=== PATIENT | male | born 1940 | race Caucasian/White ===

== ENCOUNTER 2016-08-09 06:11 | Inpatient (IN) | payer MEDICARE, BC ==
[2016-08-09] MEDS ORDERED: HEPARIN SODIUM,PORCINE 5,000 UNIT/ML 1 ML VIAL IV ONE (11:30)
[2016-08-09] MEDS: BUDESONIDE 0.5 MG/2 ML NEBU INHALATION SCH ×2 (11:43→18:58)
[2016-08-09] MEDS: IPRATROPIUM-ALBUTEROL 3 ML NEB INHALATION SCH ×3 (11:44→18:58)
[2016-08-09 12:18] LABS: Basophils % (A) 0 %; CH 30.3; CHCM 31.9; Eosinophils % (A) 1 %; HCT 41.3 % (39.0-53.0); HDW 2.54; HGB 12.7 gm/dL (13.0-17.5); Luc # (Auto) 0.03; Luc % (Auto) 0; Lymphocytes # (A) 0.4 k/uL (1.0-4.8); Lymphocytes % (A) 6 %; MCH 29.5 pg (25.0-35.0); MCHC 30.8 g/dL (31.0-37.0); MCV 95.8 fL (80.0-100.0); Monocytes # (A) 0.1 k/uL (0-1.0); Monocytes % (A) 1 %; Neutrophils # (A) 6.3 k/uL (1.3-7.7); Neutrophils % (A) 92 %; RBC 4.31 m/uL (4.30-5.90); RDW 14.9 % (11.5-15.5); WBC 6.8 k/uL (3.8-10.6); WBC (Perox) 7.18
[2016-08-09] MEDS: HEPARIN SODIUM,PORCINE/D5W PMX 25,000 UNIT in DEXTROSE/WATER 1 500ML.BAG IV SCH (12:48)
[2016-08-09] MEDS: SODIUM CHLORIDE 0.9% 1,000 ML IV SCH (12:49)
[2016-08-09] MEDS: METOPROLOL TARTRATE 25 MG TAB PO SCH ×2 (12:49→20:03)
[2016-08-09] MEDS: LORazepam 1 MG TAB PO SCH ×3 (12:49→21:59)
[2016-08-09 12:51] LABS: Prothrombin Time 10.1 sec (9.0-12.0)
[2016-08-09 12:56] LABS: Partial Thromboplastin Time 21.6 sec (22.0-30.0)
[2016-08-09 13:05] LABS: Creatine Kinase MB 6.2 ng/mL (0.0-2.4); Troponin I 0.157 ng/mL (0.000-0.034)
[2016-08-09] MEDS: methylPREDNISolone SOD SUCCI 40 MG/ML 1 ML VIAL IV SCH ×3 (13:13→23:07)
[2016-08-09] MEDS: VENLAFAXINE HCL ER 150 MG CAP PO SCH (13:13)
--- NOTE | 2016-08-09 14:49 | XR ---
EXAMINATION TYPE: XR chest 1V portable DATE OF EXAM: 08/09/2016 2:13 PM COMPARISON: 06/17/2006 HISTORY: Shortness of breath TECHNIQUE: Single frontal view of the chest is obtained. FINDINGS: There is no focal air space opacity, pleural effusion, or pneumothorax seen. The cardiac silhouette size is within normal limits. The osseous structures are intact. Heart is enlarged and a therosclerotic change aorta. Hyperinflation suggests COPD. There is a patchy left upper lobe area of density. IMPRESSION: 1. Patchy left upper lobe peripheral density may represent superimposed structures are early infiltra te, atelectasis correlate clinically. 2. COPD
--- NOTE | 2016-08-09 17:16 | P.CNPUL ---
History of Present Illness Consult date: 08/09/16 Requesting physician: Stew Swan Reason for consult: dyspnea Chief complaint: Shortness of breath, cough and congestion History of present illness: This is a very pleasant 75-year-old gentleman who has a past medical history of dementia, hyperlipidemia, osteoarthritis, previous recurrent pseudomonas pneumonias. He is maintained on Bactrim. He also has severe oxygen-dependent, steroid-dependent chronic obstructive pulmonary disease and follows with Dr. Vidales in our office for the same. He has a history of previous smoking. He was last seen about one month ago in the office with symptoms of cough and congestion and was treated with antibiotics and steroids and did improve for a couple of weeks. However 2 mornings ago he woke up not feeling well with difficulty breathing weakness and congestion. Yesterday he went to [facility] for continued symptoms. He was subsequently transferred here after being found to have borderline troponins and suspicion for acute coronary syndrome. He has no previous history of coronary artery disease, no myocardial infarction, no congestive heart failure. Troponin currently 0.157. He has been initiated on a heparin drip. He denies any chest pain, palpitations, lightheadedness or dizziness. He is quite dyspneic on minimal exertion and with extended conversation. He is maintaining O2 saturations in the 90s on 3 L/ m per nasal cannula. Currently afebrile. No leukocytosis. His chest x-ray shows a patchy left upper lobe density possible early infiltrate/atelectasis as well as signs of COPD. CT of the chest in December 2015 revealed fairly moderate to advanced emphysema changes with scattered areas of fibrosis seen bilaterally. Review of Systems 14 point review of system was conducted. All negative other than as mentioned in the HPI. Past Medical History Past Medical History: COPD, CVA/TIA, Dementia, Hyperlipidemia, Hypertension, Osteoarthritis (OA), Pneumonia Additional Past Medical History / Comment(s): HOME 02 4 LITERS N/C,CHRONIC LOW BACK PAIN. 2015 FALL/LT HIP FX(HAD SX HAS SCREW IN PLACE. History of recurrent Pseudomonas Pneumonia - ON MAINTANENCE ANTIBIOTIC AND STEROID SINCE 2011. "HAD SILENT TIA".DJD History of Any Multi-Drug Resistant Organisms: None Reported Past Surgical History: Back Surgery, Hernia Repair, Orthopedic Surgery, Prostate Surgery Additional Past Surgical History / Comment(s): ORIF LEFT HIP-HAS A SCREW IN PLACE, BACK SX X2(LUMBAR), NECK SX X3, MALU CATARACTS. PAIN PROC, LAST .LT ING HERNIA REPAIR, CYSTS REMOVED FROM RT HAND AND NEAR RECTUM,BRONCHOSCOPY , MALU CAROTID ENDARTERECTOMY Past Anesthesia/Blood Transfusion Reactions: Previous Problems w/ Anesthesia Additional Past Anesthesia/Blood Transfusion Reaction / Comment(s): POST-OP W/ ONE SX BECAME VIOLENT, IN 1999.CLAUSTERPHOBIA Past Psychological History: Anxiety, Depression Additional Psychological History / Comment(s): HAS SOME MEMORY LOSS/DEMENTIA. PT LIVES WITH IN SINGLE LEVEL HOME THAT HAS 3 STEPS . PT USES A CANE / WALKER AND HAS HOME 02, NEBULIZER. NO HOMECARES SERVICES RECIEVED. Smoking Status: Former smoker Past Alcohol Use History: Occasional Additional Past Alcohol Use History / Comment(s): QUIT SMOKING 2006, SMOKED LESS THAN 1PPD SINCE AGE 12 Past Drug Use History: None Reported - Past Family History Father Family Medical History: CVA/TIA Additional Family Medical History / Comment(s): AT AGE 54 FROM STROKE Mother Family Medical History: Cancer Medications and Allergies Home Medications Medication Instructions Recorded Confirmed Type Ascorbic Acid [Vitamin C] 1,000 mg PO BID 12/31/14 08/09/16 History Aspirin 162 mg PO HS 12/31/14 08/09/16 History Budesonide-Formot 160-4.5 Mcg 2 puff INHALATION RT-BID 12/31/14 08/09/16 History [Symbicort 160-4.5 Mcg Inhaler] Cholecalciferol [Vitamin D3] 2,000 unit PO DAILY 12/31/14 08/09/16 History Donepezil [Aricept] 10 mg PO HS 12/31/14 08/09/16 History Furosemide [Lasix] 20 mg PO DAILY 12/31/14 08/09/16 History Gabapentin [Neurontin] 600 mg PO TID 12/31/14 08/09/16 History Ipratropium-Albuterol Nebulize 3 ml INHALATION RT-Q6H PRN 12/31/14 08/09/16 History [Duoneb 0.5 mg-3 mg/3 ml Soln] LORazepam [Ativan] 1 mg PO TID 12/31/14 08/09/16 History Multivitamins, Thera [Multivitamin 1 tab PO DAILY 12/31/14 08/09/16 History (formulary)] Potassium Chloride [K-Tab ER] 10 meq PO DAILY 12/31/14 08/09/16 History Simvastatin [Zocor] 40 mg PO HS 12/31/14 08/09/16 History Sulfamethox-Tmp 800-160Mg [Bactrim 1 tab PO DAILY 12/31/14 08/09/16 History DS 800-160 mg] Triamterene-Hctz 37.5-25Mg 1 cap PO DAILY 12/31/14 08/09/16 History [Dyazide 37.5-25 Capsule] Venlafaxine HCl ER [Effexor XR] 150 mg PO DAILY 12/31/14 08/09/16 History amLODIPine [Norvasc] 10 mg PO HS 12/31/14 08/09/16 History Sennosides-Docusate Sodium 2 tab PO HS 09/29/15 08/09/16 History [Senokot-S] Metoprolol Tartrate [Lopressor] 25 mg PO BID 11/27/15 08/09/16 History Hydrocodone/Acetaminophen [[place] 1 tab PO Q4H PRN 12/21/15 08/09/16 History 10-325] Acetaminophen Tab [Tylenol Tab] 650 mg PO Q12H PRN 08/09/16 08/09/16 History Albuterol Sulfate [Proair Hfa] 2 puff PO RT-Q4H PRN 08/09/16 08/09/16 History predniSONE [predniSONE] See Taper PO DIRECTED 08/09/16 08/09/16 History Allergies Allergy/AdvReac Type Severity Reaction Status Date / Time codeine AdvReac Hallucinati Verified 08/09/16 10:59 ons zolpidem tartrate AdvReac Hallucinati Verified 08/09/16 10:59 [From Ambien] ons Physical Exam Vitals: Vital Signs Temp Pulse Pulse Resp BP Pulse Ox 08/09/16 16:05 98.3 F 80 18 166/73 92 L 08/09/16 15:49 65 14 08/09/16 15:36 65 14 08/09/16 12:40 104 H 20 136/98 94 L 08/09/16 11:51 95 08/09/16 11:46 95 08/09/16 10:36 16 93 L 08/09/16 09:30 97.5 F L 82 16 169/79 93 L Intake and Output 08/09/16 08/09/16 08/09/16 06:59 14:59 22:59 Intake Total 240 580 Output Total 300 Balance 240 280 Intake: IV 80 Heparin Sodium,Porcine/ 80 D5w Pmx 25,000 unit In Dextrose/Water 1 500ml. bag @ 10.9 UNITS/KG/HR 19 .94 mls/hr IV .Q24H NAVEEN Rx#:[id number] Oral 240 500 Output: Urine 300 Other: # Bowel Movements 1 Weight 91.5 kg Patient Weight 08/10/16 06:59 Weight 91.5 kg GENERAL EXAM: Alert, fairly comfortable in no apparent distress. HEAD: Normocephalic. EYES: Normal reaction of pupils, equal size. NOSE: Clear with pink turbinates. THROAT: No erythema or exudates. NECK: No masses, no JVD. CHEST: No chest wall deformity. LUNGS: Equal air entry with end expiratory wheeze. Diminished throughout. CVS: S1 and S2 normal with no audible murmurs, regular rhythm. ABDOMEN: No hepatosplenomegaly, normal bowel sounds, no guarding or rigidity. Extremities: There is trace peripheral edema. No clubbing, no cyanosis. Peripheral pulses are intact. Results - Laboratory Findings CBC and BMP: 08/09/16 12:01 PT/INR, D-dimer PT 10.1 sec (9.0-12.0) 08/09/16 12:01 INR 1.0 (<1.1) 08/09/16 12:01 Abnormal lab findings: Abnormal Labs 08/09/16 08/09/16 08/09/16 12:01 12:01 12:01 Hgb 12.7 L MCHC 30.8 L Lymphocytes # 0.4 L APTT 21.6 L CK-MB (CK-2) 6.2 H* Troponin I 0.157 H* - Diagnostic Findings Chest x-ray: image reviewed Assessment and Plan Plan: Impression: #1 Acute exacerbation of severe oxygen-dependent, steroid-dependent chronic obstructive pulmonary disease complicated by left upper lobe infiltrate/ atelectasis. #2 History of recurrent pseudomonas pneumonias, maintained on Bactrim in the outpatient setting. #3 Troponin leak with suspected coronary artery disease. Currently on a heparin drip. #4 History of dementia. #5 Hyperlipidemia. #6 Osteoarthritis with previous hip fracture secondary to a fall. #7 Remote history of chronic tobacco dependence. #8 Poor overall functional performance based on the above-mentioned multiple comorbidities. Plan: The patient was seen and evaluated by Dr. Vidales. His chest x-ray and labs were reviewed. We'll go ahead and continue with his pulmonary medications including bronchodilators every 4 hours, Pulmicort inhalations twice a day, IV Solu-Medrol and empiric antibiotics in the form of ceftriaxone and azithromycin. He remains on a heparin drip for now. Cardiology has been consulted. The patient is a DO NOT RESUSCITATE/DO NOT INTUBATE CODE STATUS. We will continue to follow and make further recommendations based on his clinical status. Time with Patient: Greater than 30
[2016-08-09] MEDS: GABAPENTIN 300 MG CAP PO SCH ×2 (17:38→21:56)
[2016-08-09 19:33] LABS: Creatine Kinase MB 42.6 ng/mL (0.0-2.4); Troponin I 4.23 ng/mL (0.000-0.034)
[2016-08-09 19:47] LABS: Glucose,Whole Blood 173 mg/dL (75-99)
[2016-08-09] MEDS: MORPHINE SULFATE 2 MG/ML SYRINGE IVP PRN (19:59)
[2016-08-09] MEDS: amLODIPine 10 MG TAB PO SCH (20:03)
[2016-08-09] MEDS: FAMOTIDINE 20 MG TAB PO SCH (20:04)
[2016-08-09] MEDS: HEPARIN SODIUM,PORCINE 5,000 UNIT/ML 1 ML VIAL IV PRN (20:12)
[2016-08-09 20:26] LABS: Anion Gap 17 mmol/L; Blood Urea Nitrogen 23 mg/dL (9-20); Calcium 9.7 mg/dL (8.4-10.2); Carbon Dioxide 21 mmol/L (22-30); Chloride 103 mmol/L (98-107); Glucose 172 mg/dL (74-99); Non-African American GFR(MDRD) >60 (>60 ml/min/1.73 sqM); Potassium 4.9 mmol/L (3.5-5.1); Sodium 141 mmol/L (137-145)
--- NOTE | 2016-08-09 20:44 | XR ---
EXAMINATION TYPE: XR chest 1V portable DATE OF EXAM: 08/09/2016 8:37 PM COMPARISON: Today HISTORY: Short of breath TECHNIQUE: Single frontal view of the chest is obtained. FINDINGS: There is no heart failure nor confluent pneumonic infiltrate. There is coarsening of inter stitial markings. There is no pleural effusion. There are chest leads. IMPRESSION: Pulmonary fibrotic changes. No acute lung disease. No change.
[2016-08-09] MEDS: FUROSEMIDE 20 MG TAB PO SCH (21:56)
[2016-08-09] MEDS: IPRATROPIUM-ALBUTEROL 3 ML NEB INHALATION PRN ×2 (21:58→23:59)
[2016-08-10] MEDS: MORPHINE SULFATE 2 MG/ML SYRINGE IVP PRN (00:12)
[2016-08-10 01:30] LABS: Creatine Kinase MB 75.5 ng/mL (0.0-2.4); Troponin I 8.65 ng/mL (0.000-0.034)
[2016-08-10] MEDS: IPRATROPIUM-ALBUTEROL 3 ML NEB INHALATION PRN ×3 (01:56→05:41)
[2016-08-10] MEDS ORDERED: FUROSEMIDE 10 MG/ML 4 ML VIAL IV STA ×2 (03:02→21:34)
[2016-08-10] MEDS ORDERED: FUROSEMIDE 10 MG/ML 4 ML VIAL ONE (03:05)
[2016-08-10 05:32] LABS: Glucose,Whole Blood 157 mg/dL (75-99)
[2016-08-10 06:12] LABS: Glucose,Whole Blood 143 mg/dL (75-99)
[2016-08-10] MEDS: HEPARIN SODIUM,PORCINE 5,000 UNIT/ML 1 ML VIAL IV PRN ×2 (06:19→12:49)
[2016-08-10] MEDS ORDERED: NALOXONE 0.4 MG/ML 1 ML VIAL IV PRN (06:28)
[2016-08-10 07:02] LABS: Appearance,Urine Clear (Clear); Bilirubin,Urine Negative (Negative); Glucose,Urine (UA) Negative (Negative); Ketones,Urine Negative (Negative); Leukocyte Esterase,Urine Negative (Negative); Mucus,Urine Rare /hpf; Nitrite,Urine Negative (Negative); PH, Urine 5.5 (5.0-8.0); Particle Count 1235; Protein,Urine Negative (Negative); RBC,Urine <1 /hpf (0-5); Specific Gravity,Urine 1.007 (1.001-1.035); UA Billing (MACRO vs. MICRO) MICRO; Urobilinogen,Urine <2.0 mg/dL (<2.0)
--- NOTE | 2016-08-10 07:21 | XR ---
EXAMINATION TYPE: XR chest 1V DATE OF EXAM: 08/10/2016 7:06 AM HISTORY: SOB. REFERENCE: Previous study dated 08/09/2016. FINDINGS: There has been a previous anterior and posterior cervical fusion in the lower cervical spin e. There is apparent elevation right hemidiaphragm. Heart size is upper limits of normal. There is some chronic linear scarring at the lung bases. This may represent mild fibrosis. There is no pneumonia or edema. IMPRESSION: 1. MILD CARDIOMEGALY. 2. MILD, CHRONIC INTERSTITIAL CHANGE. 3. POSTOPERATIVE CHANGE.
[2016-08-10] MEDS: IPRATROPIUM-ALBUTEROL 3 ML NEB INHALATION SCH ×4 (08:29→20:56)
[2016-08-10] MEDS: BUDESONIDE 0.5 MG/2 ML NEBU INHALATION SCH ×2 (08:29→20:56)
--- NOTE | 2016-08-10 08:34 | HP ---
DATE OF ADMISSION: REASON FOR ADMISSION: Difficulty in breathing. HISTORY OF PRESENT ILLNESS: This is a 75-year-old gentleman that comes into the hospital from [facility] with complaints of difficulty in breathing over the last few days. Patient has been diagnosed with advanced COPD . He is currently maintained on 3 liters of supplemental oxygen with chronic hypoxic respiratory failure. Patient states that he has been making increased amounts of yellowish sputum which is baseline color of sputum production over the last 4 days; however, has noted worsening difficulty in breathing, and worsening difficulty over the last few days. Patient went into the other facility and was noted to have significant wheezing apparently was in significant respiratory distress however, has improved with multiple breathing treatments. Patient was triaged to our facility at a higher level of care in regards to providing management for COPD exacerbation. Patient apparently was also noted to have a trace amount of troponin leak. Patient denies having any chest pain during this period of time. The patient's main complaints are difficulty in breathing. No fevers, chills, nausea, vomiting, or diarrhea is reported. At the time of my evaluation, patient states that he is feeling slightly better. However, he continues to have a cough that is productive in nature. EKG on repeat in comparison to the previous EKG at the prior facility shows pronounced ST depressions in anterolateral leads. The patient has history of coronary artery disease. Fourteen-point review of system was done and none pertinent other that was mentioned above. Past medical history includes: 1. Advanced chronic obstructive pulmonary disease. 2. Anemia. 3. Chronic hypoxic respiratory failure. 4. ( ). 5. Degenerative disc disease. 6. Hypertension. 7. Anxiety. 8. Dementia. 9. Vitamin D3 insufficiency. 10. History of hip fracture. SOCIAL HISTORY: Quit smoking about 8 years ago. No significant alcohol use or drug use. Home medications include: 1. Pro-Air. 2. Tylenol. 3. Lopressor. 4. DuoNeb. 5. [place]. 6. Neurontin. 7. Lasix. 8. Aricept. 9. Ativan. 10. Vitamin D3. 11. Symbicort. 12. Aspirin. 13. Vitamin C. 14. Multivitamin. 15. Dyazide. 16. Zocor. 17. Bactrim. 18. Senokot. 19. Norvasc. 20. Effexor. 21. Prednisone. Doses were appropriately reviewed and reconciled on admission. ALLERGIES: CODEINE AND ( ). Past surgical history includes orthopedic surgery, neck surgery and back surgery. Physical exam today: VITALS: Temperature is within normal limits. Heart rate is 65 to 104, respiratory rate 14, blood pressure is 136/98, saturating 94% on room air. GENERAL APPEARANCE: Alert, oriented x3 in mild respiratory distress. NECK: Supple. No JVD and previous surgical scar noted on the C-spine. LUNGS: Air movement is appreciated. Trace wheezing on prolonged expiration. Some rhonchi on the left side. HEART: S1, S2 are heard, regular rate and rhythm. A systolic murmur is appreciated. ABDOMEN: Soft, nontender, no organomegaly. NEURO: No focal motor or sensory deficits noted. VITALS: Chest x-ray is reviewed as a left upper lobe density, chronic changes as well. LABORATORY DATA: Today revealed white count 6.9, hemoglobin 12.7 and hematocrit 41.3, platelets of 235. Troponin of 0.157 with CK of 6.2. EKG as interpreted above. ASSESSMENT AND PLAN: 1. Non- Q wave myocardial infarction. 2. Acute exacerbation of chronic obstructive pulmonary disease, mild to moderate likely secondary to community-acquired pneumonia in a patient with advanced COPD with chronic hypoxic respiratory failure. 3. Hypertension. 4. Anxiety. 5. Vitamin D insufficiency. 6. Previous hip fracture. 7. Dyslipidemia. 8. Depression. PLAN: Will start the patient on IV heparin. Patient does not appear to have any chest pain all over her EKG changes are significant. This could be sequelae of the ( ) being significant respiratory distress and then patient was reported to be hypoxic at the other facility. We will have a director of vital statistics evaluate the patient as well. I will start the patient on Solu-Medrol 40 mg q.8h. Antibiotic coverage to be with Rocephin and Zithromax. We will have Dr. Vidales who is a java application engineer, evaluate the patient as well. DuoNeb q.i.d. and DuoNeb p.r.n. as well with Pulmicort 0.5 mg b.i.d. to be initiated. DVT prophylaxis aspiration already on heparin. The patient will be started on GI prophylaxis with high dose of steroids and patient being critical ill. Medications were reconciled.
[2016-08-10] MEDS: AZITHROMYCIN 500 MG in SODIUM CHLORIDE 0.9% 250 ML IVPB SCH (09:22)
[2016-08-10] MEDS: INSULIN LISPRO (humaLOG) 300 UNIT/3 ML VIAL SQ SCH ×4 (09:26→23:06)
[2016-08-10] MEDS: SODIUM CHLORIDE 0.9% 1,000 ML IV SCH (09:27)
[2016-08-10 09:33] LABS: Alkaline Phosphatase 49 U/L (38-126); Anion Gap 12 mmol/L; Blood Urea Nitrogen 40 mg/dL (9-20); Calcium 9.1 mg/dL (8.4-10.2); Carbon Dioxide 27 mmol/L (22-30); Chloride 103 mmol/L (98-107); Glucose 145 mg/dL (74-99); Magnesium 2.2 mg/dL (1.6-2.3); Non-African American GFR(MDRD) 52 (>60 ml/min/1.73 sqM); Phosphorous 6.6 mg/dL (2.5-4.5); Potassium 4.4 mmol/L (3.5-5.1); Sodium 142 mmol/L (137-145); Total Bilirubin 0.8 mg/dL (0.2-1.3); Total Protein 6.8 g/dL (6.3-8.2)
[2016-08-10 09:44] LABS: Basophils % (A) 0 %; CH 30.2; CHCM 31.3; Eosinophils % (A) 0 %; HCT 39.2 % (39.0-53.0); HGB 12.6 gm/dL (13.0-17.5); Hypochromasia Slight; Luc # (Auto) 0.14; Luc % (Auto) 1; Lymphocytes # (A) 0.7 k/uL (1.0-4.8); Lymphocytes % (A) 5 %; MCH 31.2 pg (25.0-35.0); MCHC 32.2 g/dL (31.0-37.0); MCV 96.8 fL (80.0-100.0); Mean Platelet Volume 7.5; Monocytes # (A) 0.6 k/uL (0-1.0); Monocytes % (A) 4 %; Neutrophils # (A) 12.1 k/uL (1.3-7.7); Neutrophils % (A) 90 %; RBC 4.05 m/uL (4.30-5.90); RDW 14.8 % (11.5-15.5); WBC 13.5 k/uL (3.8-10.6); WBC (Perox) 14.11
[2016-08-10 10:15] LABS: ALT 3288 U/L (21-72); AST 2043 U/L (17-59)
[2016-08-10] MEDS: FAMOTIDINE 20 MG TAB PO SCH (10:48)
[2016-08-10] MEDS: GABAPENTIN 300 MG CAP PO SCH ×3 (10:48→23:16)
[2016-08-10] MEDS: VENLAFAXINE HCL ER 150 MG CAP PO SCH (10:49)
[2016-08-10] MEDS: METOPROLOL TARTRATE 50 MG TAB PO SCH (10:49)
[2016-08-10] MEDS: FUROSEMIDE 20 MG TAB PO SCH (10:49)
[2016-08-10] MEDS: HEPARIN SODIUM,PORCINE/D5W PMX 25,000 UNIT in DEXTROSE/WATER 1 500ML.BAG IV SCH (10:54)
[2016-08-10] MEDS: LORazepam 1 MG TAB PO SCH (10:54)
[2016-08-10] MEDS: methylPREDNISolone SOD SUCCI 125 MG/2 ML VIAL IV SCH ×3 (11:11→23:45)
[2016-08-10] MEDS ORDERED: ATORVASTATIN 80 MG TAB PO STA (11:26)
[2016-08-10] MEDS ORDERED: ASPIRIN 81 MG CHEW PO STA (11:28)
[2016-08-10] MEDS ORDERED: HEPARIN SODIUM,PORCINE 5,000 UNIT/ML 1 ML VIAL IV STA (12:38)
--- NOTE | 2016-08-10 13:00 | P.PN ---
Subjective Principal diagnosis: Acute inferior wall myocardial infarction, acute exacerbation of chronic obstructive lung disease. This is a very pleasant 75-year-old gentleman who has a past medical history of dementia, hyperlipidemia, osteoarthritis, previous recurrent pneumonias. He is maintained on Bactrim. He also has severe oxygen-dependent, steroid-dependent chronic obstructive pulmonary disease and follows with me our office for the same. He has a history of previous smoking. He was last seen about one month ago in the office with symptoms of cough and congestion and was treated with antibiotics and steroids and did improve for a couple of weeks. However 2 mornings ago he woke up not feeling well with difficulty breathing weakness and congestion. Yesterday he went to [facility] for continued symptoms. He was subsequently transferred here after being found to have borderline troponins and suspicion for acute coronary syndrome. He has no previous history of coronary artery disease, no myocardial infarction, no congestive heart failure. Troponin currently 0.157. He has been initiated on a heparin drip. He denies any chest pain, palpitations, lightheadedness or dizziness. He is quite dyspneic on minimal exertion and with extended conversation. He is maintaining O2 saturations in the 90s on 3 L/m per nasal cannula. Currently afebrile. No leukocytosis. His chest x-ray shows a patchy left upper lobe density possible early infiltrate/atelectasis as well as signs of COPD. CT of the chest in December 2015 revealed fairly moderate to advanced emphysema changes with scattered areas of fibrosis seen bilaterally. Patient was reevaluated today on 08/10/2016, flight security specialist hours, the patient was having more shortness of breath, he was requiring more frequent treatments with DuoNeb, and he was placed on BiPAP. I was notified about this patient, and I have made arrangements for the patient be transferred to the ICU. Knowing in fact that the patient is DO NOT RESUSCITATE CODE STATUS, but I felt the patient will get closer attention in the intensive care unit setting. I saw him in the ICU shortly after he was transferred, patient remains on BiPAP, IPAP of 12, EPAP of 5, FiO2 is 70%. Patient seems to be more comfortable with BiPAP. However he was noted to be a bit tachycardic, hypertensive, and I have recommended that we increase his beta reza to 50 mg twice a day, I also recommended that he gets immediate evaluation by cardiology. His cardiac enzymes are on the rise, and clearly based on the presentation the patient must have sustained an acute inferior wall myocardial infarction. Chest x-ray showed no evidence of pulmonary edema, chronic changes noted, no evidence of pneumonia. Had a long discussion with the patient and his at bedside, patient would like to remain DO NOT RESUSCITATE, and we'll try to manage conservatively short of heroic invasive measures. Labs were reviewed PTT is therapeutic. CBC is normal. Electrolytes are normal however BUN is 40 creatinine is 1.33. Liver enzymes are on the rise possibly secondary to hypoperfusion. Or shock liver. Troponin is up to 8.6 CPK is up to 75.5. Objective - Vital Signs Vital signs: Vital Signs Temp 98.1 F 08/10/16 04:00 Pulse 71 08/10/16 12:03 Resp 21 08/10/16 12:00 BP 118/94 08/10/16 12:00 Pulse Ox 92 L 08/10/16 12:00 Intake & Output 08/09/16 08/10/16 08/10/16 18:59 06:59 18:59 Intake Total 1060 638.381 566.319 Output Total 515 726 8721 Balance 760 388.381 -783.681 Weight 91.5 kg Intake: IV 80 239.4 115.3 0.9 @10mls/hr 140 90 Heparin Sodium,Porcine/ 80 99.4 25.3 D5w Pmx 25,000 unit In Dextrose/Water 1 500ml. bag @ 10.9 UNITS/KG/HR 19 .94 mls/hr IV .Q24H NAVEEN Rx#:[id number] Intake, IV Titration 398.981 451.019 Amount Azithromycin 500 mg In 250 Sodium Chloride 0.9% 250 ml @ 125 mls/hr IVPB DAILY NAVEEN Rx#:[id number] Heparin Sodium,Porcine/ 398.981 101.019 D5w Pmx 25,000 unit In Dextrose/Water 1 500ml. bag @ 10.9 UNITS/KG/HR 19 .94 mls/hr IV .Q24H NAVEEN Rx#:[id number] cefTRIAXone 1,000 mg In 100 Sodium Chloride 0.9% 50 ml @ 100 mls/hr IVPB Q24HR NAVEEN Rx#:[id number] Oral 980 Output: Urine 151 884 4223 Other: Voiding Method Bedside Commode Indwelling Catheter Urinal # Bowel Movements 1 - Exam GENERAL EXAM: Alert, fairly comfortable in no apparent distress. However the patient is presently on BiPAP 02/21. HEAD: Normocephalic. EYES: Normal reaction of pupils, equal size. NOSE: Clear with pink turbinates. THROAT: No erythema or exudates. NECK: No masses, no JVD. CHEST: No chest wall deformity. LUNGS: Equal air entry with end expiratory wheeze. Diminished throughout. CVS: S1 and S2 normal with no audible murmurs, regular rhythm. ABDOMEN: No hepatosplenomegaly, normal bowel sounds, no guarding or rigidity. Extremities: There is trace peripheral edema. No clubbing, no cyanosis. Peripheral pulses are intact. - Labs CBC & Chem 7: 08/10/16 08:56 08/10/16 08:56 Labs: Abnormal Lab Results - Last 24 Hours (Table) 08/09/16 08/09/16 08/09/16 Range/Units 12:01 12:01 18:35 WBC (3.8-10.6) k/uL RBC (4.30-5.90) m/uL Hgb (13.0-17.5) gm/dL Neutrophils # (1.3-7.7) k/uL Lymphocytes # (1.0-4.8) k/uL APTT 21.6 L (22.0-30.0) sec Carbon Dioxide (22-30) mmol/L BUN (9-20) mg/dL Creatinine (0.66-1.25) mg/dL Glucose (74-99) mg/dL POC Glucose (mg/dL) (75-99) mg/dL Phosphorus (2.5-4.5) mg/dL AST (17-59) U/L ALT (21-72) U/L CK-MB (CK-2) 6.2 H* 42.6 H* (0.0-2.4) ng/mL Troponin I 0.157 H* 4.230 H* (0.000-0.034) ng/mL Urine Blood (Negative) Hyaline Casts (0-2) /lpf Urine Mucus (None) /hpf 08/09/16 08/09/16 08/09/16 Range/Units 18:35 19:44 19:53 WBC (3.8-10.6) k/uL RBC (4.30-5.90) m/uL Hgb (13.0-17.5) gm/dL Neutrophils # (1.3-7.7) k/uL Lymphocytes # (1.0-4.8) k/uL APTT 35.1 H (22.0-30.0) sec Carbon Dioxide 21 L (22-30) mmol/L BUN 23 H (9-20) mg/dL Creatinine (0.66-1.25) mg/dL Glucose 172 H (74-99) mg/dL POC Glucose (mg/dL) 173 H (75-99) mg/dL Phosphorus (2.5-4.5) mg/dL AST (17-59) U/L ALT (21-72) U/L CK-MB (CK-2) (0.0-2.4) ng/mL Troponin I (0.000-0.034) ng/mL Urine Blood (Negative) Hyaline Casts (0-2) /lpf Urine Mucus (None) /hpf 08/10/16 08/10/16 08/10/16 Range/Units 00:21 01:58 05:30 WBC (3.8-10.6) k/uL RBC (4.30-5.90) m/uL Hgb (13.0-17.5) gm/dL Neutrophils # (1.3-7.7) k/uL Lymphocytes # (1.0-4.8) k/uL APTT 39.1 H (22.0-30.0) sec Carbon Dioxide (22-30) mmol/L BUN (9-20) mg/dL Creatinine (0.66-1.25) mg/dL Glucose (74-99) mg/dL POC Glucose (mg/dL) 157 H (75-99) mg/dL Phosphorus (2.5-4.5) mg/dL AST (17-59) U/L ALT (21-72) U/L CK-MB (CK-2) 75.5 H* (0.0-2.4) ng/mL Troponin I 8.650 H* (0.000-0.034) ng/mL Urine Blood (Negative) Hyaline Casts (0-2) /lpf Urine Mucus (None) /hpf 08/10/16 08/10/16 08/10/16 Range/Units 06:01 06:15 08:56 WBC 13.5 H (3.8-10.6) k/uL RBC 4.05 L (4.30-5.90) m/uL Hgb 12.6 L (13.0-17.5) gm/dL Neutrophils # 12.1 H (1.3-7.7) k/uL Lymphocytes # 0.7 L (1.0-4.8) k/uL APTT (22.0-30.0) sec Carbon Dioxide (22-30) mmol/L BUN (9-20) mg/dL Creatinine (0.66-1.25) mg/dL Glucose (74-99) mg/dL POC Glucose (mg/dL) 143 H (75-99) mg/dL Phosphorus (2.5-4.5) mg/dL AST (17-59) U/L ALT (21-72) U/L CK-MB (CK-2) (0.0-2.4) ng/mL Troponin I (0.000-0.034) ng/mL Urine Blood Small H (Negative) Hyaline Casts 15 H (0-2) /lpf Urine Mucus Rare H (None) /hpf 08/10/16 08/10/16 Range/Units 08:56 11:38 WBC (3.8-10.6) k/uL RBC (4.30-5.90) m/uL Hgb (13.0-17.5) gm/dL Neutrophils # (1.3-7.7) k/uL Lymphocytes # (1.0-4.8) k/uL APTT 45.8 H (22.0-30.0) sec Carbon Dioxide (22-30) mmol/L BUN 40 H (9-20) mg/dL Creatinine 1.33 H (0.66-1.25) mg/dL Glucose 145 H (74-99) mg/dL POC Glucose (mg/dL) (75-99) mg/dL Phosphorus 6.6 H (2.5-4.5) mg/dL AST 2043 H (17-59) U/L ALT 3288 H (21-72) U/L CK-MB (CK-2) (0.0-2.4) ng/mL Troponin I (0.000-0.034) ng/mL Urine Blood (Negative) Hyaline Casts (0-2) /lpf Urine Mucus (None) /hpf Assessment and Plan Plan: Impression: 1 Acute inferior wall myocardial infarction with abnormal EKG on presentation and positive cardiac panel. Patient is presently on treatment as per protocol. 2 acute hypoxic respiratory failure secondary to Acute exacerbation of severe oxygen-dependent, steroid-dependent chronic obstructive pulmonary disease no evidence of pneumonia on chest x-ray. The findings are chronic findings on the chest x-ray. # 3 History of recurrent pneumonias, maintained on Bactrim in the outpatient setting. #4 History of dementia. #5 Hyperlipidemia. #6 Osteoarthritis with previous hip fracture secondary to a fall. #7 Remote history of chronic tobacco dependence. #8 Poor overall functional performance based on the above-mentioned multiple comorbidities. #9 abnormal liver enzymes, will likely need to be further investigated. Possibly this is a presentation of shock liver. Recommendation: Continue present supportive care measures, discussed his condition with him and with his family at bedside, all wish DO NOT RESUSCITATE CODE STATUS, we'll ask cardiology to evaluate, continue present treatment plan otherwise. Prognosis is definitely guarded. Critical care time is 33 minutes. Time with Patient: Greater than 30
[2016-08-10 13:12] LABS: Glucose,Whole Blood 171 mg/dL (75-99)
[2016-08-10] MEDS ORDERED: LORazepam 2 MG/ML SYRINGE ONE (14:04)
--- NOTE | 2016-08-10 14:52 | CONS ---
DATE OF CONSULTATION: Mr. Monae was transferred from [facility] with bronchitis, COPD exacerbation and shortness of breath to assess for coronary artery disease. The patient Vera about a month back. His main complaint has been breathing trouble and he has cough with expectoration, yellow-green sputum. He completely denies any chest discomfort. REVIEW OF SYSTEMS: He denies any fever, chills, rigors. He does have cough, expectoration. No nausea, vomiting or diarrhea. No hematuria or dysuria. No strokes or seizures. His ECG has showed ST depression in the anterolateral precordial leads and troponins were sent and are definitely abnormal. Past medical history of advanced COPD, chronic respiratory failure, hypertension and anemia. SOCIAL HISTORY: He quit smoking about 8 years back. No alcohol use. Medications at home include Lopressor, Lasix, aspirin, Dyazide, Zocor and prednisone. Allergies to CODEINE. On examination, he is lying almost flat in bed about a 20 degrees head up with mild shortness of breath at rest. His heart rate is in the 70s. Blood pressure is 118/94 mmHg, respiratory rate is about 20 to 25 respirations per minute. No JVD or thyromegaly with heart sounds S1, S2 are soft. Breath sounds bilateral rhonchi with some crackles at the bases. Abdomen is soft, nontender. Extremities are warm. No edema. A 12-lead ECG shows ST depressions anterolaterally. Labs are reviewed. His white count is elevated at 13.5 with a neutrophil shift. Electrolytes are normal. BUN is 40, creatinine 1.33. Liver functions are abnormal, AST greater than 2000 ALT greater than 3000. IMPRESSION: 1. Non-Q-wave myocardial infarction. 2. Chronic obstructive pulmonary disease exacerbation, tracheobronchitis. 3. Abnormal liver functions, unclear etiology at this time. SUGGEST: Beta blockers, aspirin, statins. We able to watch the LFTs on statins and continue IV heparin today. A 2-D echo and Doppler study, medical treatment for coronary artery disease and non-Q-wave myocardial infarction at this time until the lung functions improve. I will also start him on Lasix 40 mg once daily. This was discussed with the family and they are agreeable with the plan.
--- NOTE | 2016-08-10 16:51 | P.PN ---
Subjective HISTORY OF PRESENT ILLNESS: This is a 75-year-old gentleman that comes into the hospital from [facility] with complaints of difficulty in breathing over the last few days. Patient has been diagnosed with advanced COPD . He is currently maintained on 3 liters of supplemental oxygen with chronic hypoxic respiratory failure. Patient states that he has been making increased amounts of yellowish sputum which is baseline color of sputum production over the last 4 days; however, has noted worsening difficulty in breathing, and worsening difficulty over the last few days. Patient went into the other facility and was noted to have significant wheezing apparently was in significant respiratory distress however, has improved with multiple breathing treatments. Patient was triaged to our facility at a higher level of care in regards to providing management for COPD exacerbation. Patient apparently was also noted to have a trace amount of troponin leak. Patient denies having any chest pain during this period of time. The patient's main complaints are difficulty in breathing. No fevers, chills, nausea, vomiting, or diarrhea is reported. At the time of my evaluation, patient states that he is feeling slightly better. However, he continues to have a cough that is productive in nature. EKG on repeat in comparison to the previous EKG at the prior facility shows pronounced ST depressions in anterolateral leads. The patient has history of coronary artery disease. 08/10/16 in the ICu, overnight pt was hypxic and triaged to the ICU for continous bipap during my eval, pt was in distress not tolerating bipap Fourteen-point review of system was done and none pertinent other that was mentioned above. Physical exam GENERAL APPEARANCE: Alert, oriented x3 in mild respiratory distress. NECK: Supple. No JVD and previous surgical scar noted on the C-spine. LUNGS: worse than on admission exp. wheezing noted air movement is diminished HEART: S1, S2 are heard, regular rate and rhythm. A systolic murmur is appreciated. ABDOMEN: Soft, nontender, no organomegaly. NEURO: No focal motor or sensory deficits noted. erratic Objective - Vital Signs Vital signs: Vital Signs Temp 97.8 F 08/10/16 13:00 Pulse 69 08/10/16 16:00 Resp 20 08/10/16 16:00 BP 108/73 08/10/16 16:00 Pulse Ox 95 08/10/16 16:00 Intake & Output 08/09/16 08/10/16 08/10/16 18:59 06:59 18:59 Intake Total 1060 638.381 665.954 Output Total 821 526 7421 Balance 760 388.381 -859.046 Weight 91.5 kg Intake: IV 80 239.4 155.3 0.9 @10mls/hr 140 130 Heparin Sodium,Porcine/ 80 99.4 25.3 D5w Pmx 25,000 unit In Dextrose/Water 1 500ml. bag @ 10.9 UNITS/KG/HR 19 .94 mls/hr IV .Q24H [facility] Rx#:[id number] Intake, IV Titration 398.981 510.654 Amount Azithromycin 500 mg In 250 Sodium Chloride 0.9% 250 ml @ 125 mls/hr IVPB DAILY [facility] Rx#:[id number] Heparin Sodium,Porcine/ 398.981 160.654 D5w Pmx 25,000 unit In Dextrose/Water 1 500ml. bag @ 10.9 UNITS/KG/HR 19 .94 mls/hr IV .Q24H [facility] Rx#:[id number] cefTRIAXone 1,000 mg In 100 Sodium Chloride 0.9% 50 ml @ 100 mls/hr IVPB Q24HR [facility]EN Rx#:[id number] Oral 980 Output: Urine 653 960 2311 Other: Voiding Method Bedside Commode Indwelling Catheter Urinal # Bowel Movements 1 - Labs CBC & Chem 7: 08/10/16 08:56 08/10/16 08:56 Labs: Abnormal Lab Results - Last 24 Hours (Table) 08/09/16 08/09/16 08/09/16 Range/Units 18:35 18:35 19:44 WBC (3.8-10.6) k/uL RBC (4.30-5.90) m/uL Hgb (13.0-17.5) gm/dL Neutrophils # (1.3-7.7) k/uL Lymphocytes # (1.0-4.8) k/uL APTT 35.1 H (22.0-30.0) sec Carbon Dioxide (22-30) mmol/L BUN (9-20) mg/dL Creatinine (0.66-1.25) mg/dL Glucose (74-99) mg/dL POC Glucose (mg/dL) 173 H (75-99) mg/dL Phosphorus (2.5-4.5) mg/dL AST (17-59) U/L ALT (21-72) U/L CK-MB (CK-2) 42.6 H* (0.0-2.4) ng/mL Troponin I 4.230 H* (0.000-0.034) ng/mL Urine Blood (Negative) Hyaline Casts (0-2) /lpf Urine Mucus (None) /hpf 08/09/16 08/10/16 08/10/16 Range/Units 19:53 00:21 01:58 WBC (3.8-10.6) k/uL RBC (4.30-5.90) m/uL Hgb (13.0-17.5) gm/dL Neutrophils # (1.3-7.7) k/uL Lymphocytes # (1.0-4.8) k/uL APTT 39.1 H (22.0-30.0) sec Carbon Dioxide 21 L (22-30) mmol/L BUN 23 H (9-20) mg/dL Creatinine (0.66-1.25) mg/dL Glucose 172 H (74-99) mg/dL POC Glucose (mg/dL) (75-99) mg/dL Phosphorus (2.5-4.5) mg/dL AST (17-59) U/L ALT (21-72) U/L CK-MB (CK-2) 75.5 H* (0.0-2.4) ng/mL Troponin I 8.650 H* (0.000-0.034) ng/mL Urine Blood (Negative) Hyaline Casts (0-2) /lpf Urine Mucus (None) /hpf 08/10/16 08/10/16 08/10/16 Range/Units 05:30 06:01 06:15 WBC (3.8-10.6) k/uL RBC (4.30-5.90) m/uL Hgb (13.0-17.5) gm/dL Neutrophils # (1.3-7.7) k/uL Lymphocytes # (1.0-4.8) k/uL APTT (22.0-30.0) sec Carbon Dioxide (22-30) mmol/L BUN (9-20) mg/dL Creatinine (0.66-1.25) mg/dL Glucose (74-99) mg/dL POC Glucose (mg/dL) 157 H 143 H (75-99) mg/dL Phosphorus (2.5-4.5) mg/dL AST (17-59) U/L ALT (21-72) U/L CK-MB (CK-2) (0.0-2.4) ng/mL Troponin I (0.000-0.034) ng/mL Urine Blood Small H (Negative) Hyaline Casts 15 H (0-2) /lpf Urine Mucus Rare H (None) /hpf 08/10/16 08/10/16 08/10/16 Range/Units 08:56 08:56 11:38 WBC 13.5 H (3.8-10.6) k/uL RBC 4.05 L (4.30-5.90) m/uL Hgb 12.6 L (13.0-17.5) gm/dL Neutrophils # 12.1 H (1.3-7.7) k/uL Lymphocytes # 0.7 L (1.0-4.8) k/uL APTT 45.8 H (22.0-30.0) sec Carbon Dioxide (22-30) mmol/L BUN 40 H (9-20) mg/dL Creatinine 1.33 H (0.66-1.25) mg/dL Glucose 145 H (74-99) mg/dL POC Glucose (mg/dL) (75-99) mg/dL Phosphorus 6.6 H (2.5-4.5) mg/dL AST 2043 H (17-59) U/L ALT 3288 H (21-72) U/L CK-MB (CK-2) (0.0-2.4) ng/mL Troponin I (0.000-0.034) ng/mL Urine Blood (Negative) Hyaline Casts (0-2) /lpf Urine Mucus (None) /hpf 08/10/16 Range/Units 13:07 WBC (3.8-10.6) k/uL RBC (4.30-5.90) m/uL Hgb (13.0-17.5) gm/dL Neutrophils # (1.3-7.7) k/uL Lymphocytes # (1.0-4.8) k/uL APTT (22.0-30.0) sec Carbon Dioxide (22-30) mmol/L BUN (9-20) mg/dL Creatinine (0.66-1.25) mg/dL Glucose (74-99) mg/dL POC Glucose (mg/dL) 171 H (75-99) mg/dL Phosphorus (2.5-4.5) mg/dL AST (17-59) U/L ALT (21-72) U/L CK-MB (CK-2) (0.0-2.4) ng/mL Troponin I (0.000-0.034) ng/mL Urine Blood (Negative) Hyaline Casts (0-2) /lpf Urine Mucus (None) /hpf Assessment and Plan Plan: ASSESSMENT AND PLAN: 1. Non- Q wave myocardial infarction. 2. Acute exacerbation of chronic obstructive pulmonary disease, mild to moderate likely secondary to community-acquired pneumonia in a patient with advanced COPD with acute on chronic hypoxic hypercapnic respiratory failure. 3. Hypertension. 4. Anxiety. 5. Vitamin D insufficiency. 6. Previous hip fracture. 7. Dyslipidemia. 8. Depression. PLAN: solumedrol iv, breathing tx to continue CAP abx bipap asa, statin and to continue heparin per NSTEMI protocol code status DNR
[2016-08-10 17:21] LABS: Glucose,Whole Blood 129 mg/dL (75-99)
[2016-08-10] MEDS: LORazepam 2 MG/ML SYRINGE IV PRN (18:28)
[2016-08-10 21:00] LABS: Glucose,Whole Blood 129 mg/dL (75-99)
[2016-08-10] MEDS: DEXMEDETOMIDINE 400 MCG in SODIUM CHLORIDE 0.9% 100 ML IV SCH (21:16)
[2016-08-10] MEDS ORDERED: HALOPERIDOL LACTATE 5 MG/ML 1 ML VIAL IVP ONE (21:30)
[2016-08-10] MEDS: amLODIPine 10 MG TAB PO SCH (23:16)
[2016-08-11] MEDS: METOPROLOL TARTRATE 50 MG TAB PO SCH ×3 (00:04→21:48)
[2016-08-11] MEDS: methylPREDNISolone SOD SUCCI 40 MG/ML 1 ML VIAL IV SCH (00:05)
[2016-08-11] MEDS: DEXMEDETOMIDINE 400 MCG in SODIUM CHLORIDE 0.9% 100 ML IV SCH ×2 (03:32→11:01)
[2016-08-11 04:55] LABS: Basophils % (A) 0 %; CH 30.6; CHCM 32.3; Eosinophils # (A) 0.1 k/uL (0-0.7); Eosinophils % (A) 1 %; HCT 36.4 % (39.0-53.0); HDW 2.44; HGB 11.6 gm/dL (13.0-17.5); Luc # (Auto) 0.06; Luc % (Auto) 1; Lymphocytes # (A) 0.6 k/uL (1.0-4.8); Lymphocytes % (A) 5 %; MCH 30.3 pg (25.0-35.0); MCHC 31.8 g/dL (31.0-37.0); MCV 95.2 fL (80.0-100.0); Mean Platelet Volume 7.8; Monocytes # (A) 0.3 k/uL (0-1.0); Monocytes % (A) 3 %; Neutrophils # (A) 10.1 k/uL (1.3-7.7); Neutrophils % (A) 90 %; RBC 3.82 m/uL (4.30-5.90); RDW 14.9 % (11.5-15.5); WBC 11.2 k/uL (3.8-10.6); WBC (Perox) 12.22
[2016-08-11 05:08] LABS: Calcium 7.9 mg/dL (8.4-10.2); Phosphorous 6.1 mg/dL (2.5-4.5); Potassium 3.8 mmol/L (3.5-5.1)
[2016-08-11 05:17] LABS: Magnesium 2.5 mg/dL (1.6-2.3)
[2016-08-11] MEDS: IPRATROPIUM-ALBUTEROL 3 ML NEB INHALATION SCH ×4 (05:46→19:35)
[2016-08-11] MEDS ORDERED: Potassium Replacement Protocol 1 EACH MISC MISCELLANE PRN (06:27)
[2016-08-11] MEDS: HEPARIN SODIUM,PORCINE/D5W PMX 25,000 UNIT in DEXTROSE/WATER 1 500ML.BAG IV SCH (06:28)
[2016-08-11] MEDS: methylPREDNISolone SOD SUCCI 125 MG/2 ML VIAL IV SCH ×4 (06:33→23:47)
[2016-08-11] MEDS ORDERED: POTASSIUM CHLORIDE ER 20 MEQ TAB.ER PO SCH (07:00)
--- NOTE | 2016-08-11 07:07 | XR ---
EXAMINATION TYPE: XR chest 1V DATE OF EXAM: 08/11/2016 6:42 AM HISTORY: SOB. REFERENCE: Previous study dated 08/10/2016. FINDINGS: There has been an anterior and posterior fusion of the lower cervical spine by. There is chronic appearing elevation of the right hemidiaphragm. Heart size upper limits of normal. T here is worsening alveolar airspace disease on the left and to a lesser extent on the right. No defin ite pleural fluid is seen. IMPRESSION: 1. WORSENING BILATERAL AIRSPACE DISEASE. 2. BORDERLINE CARDIOMEGALY.
[2016-08-11] MEDS: BUDESONIDE 0.5 MG/2 ML NEBU INHALATION SCH ×2 (07:39→19:35)
[2016-08-11] MEDS: IPRATROPIUM-ALBUTEROL 3 ML NEB INHALATION PRN (07:39)
[2016-08-11] MEDS: SODIUM CHLORIDE 0.9% 1,000 ML IV SCH (07:43)
[2016-08-11 07:54] LABS: Glucose,Whole Blood 130 mg/dL (75-99)
[2016-08-11] MEDS: INSULIN LISPRO (humaLOG) 300 UNIT/3 ML VIAL SQ SCH ×4 (08:27→21:00)
[2016-08-11] MEDS: POTASSIUM CHLORIDE 10 MEQ, LIDOCAINE 2% INJ 10 MG in SODIUM CHLORIDE 0.9% 100 ML IV SCH ×2 (09:21→11:03)
[2016-08-11] MEDS: AZITHROMYCIN 500 MG in SODIUM CHLORIDE 0.9% 250 ML IVPB SCH (09:22)
[2016-08-11] MEDS: FAMOTIDINE 20 MG TAB PO SCH (09:24)
[2016-08-11] MEDS: GABAPENTIN 300 MG CAP PO SCH ×3 (09:24→21:49)
[2016-08-11] MEDS: VENLAFAXINE HCL ER 150 MG CAP PO SCH (09:25)
--- NOTE | 2016-08-11 10:14 | ECHOF ---
Referral Reason:LV function MEASUREMENTS -------- HEIGHT: 177.8 cm WEIGHT: 91.2 kg BP: 160/66 RVIDd: 3.2 cm (< 3.3) IVSd: 1.4 cm (0.6 - 1.1) LVIDd: 5.0 cm (3.9 - 5.3) LVPWd: 1.4 cm (0.6 - 1.1) IVSs: 2.1 cm LVIDs: 4.5 cm LVPWs: 1.9 cm LAESV Index (A-L): 20.15 ml/m Ao Diam: 3.3 cm (2.0 - 3.7) AV Cusp: 1.5 cm (1.5 - 2.6) LA Diam: 2.9 cm (2.7 - 3.8) MV EXCURSION: 18.655 mm (> 18.000) MV EF SLOPE: 132 mm/s (70 - 150) EPSS: 2.3 cm MV E Tung: 1.13 m/s MV DecT: 156 ms MV A Tung: 0.65 m/s MV E/A Ratio: 1.73 RAP: 15.00 mmHg RVSP: 25.84 mmHg FINDINGS -------- Resting tachycardia (HR>100bpm). This was a technically adequate study. There is moderate concentric left ventricular hypertrophy. There is severe global hypokinesis of LV . Overall left ventricular systolic function is severely impaired with, an EF between 20 - 25 %. Mitral Doppler inflow pattern suggests diastolic filling abnormality 21.00. The right ventricle is normal in size and function. Normal LA size by volume 22+/-6 ml/m2. The right atrium is normal in size. There is mild aortic valve sclerosis. There is no evidence of aortic regurgitation. There is no evidence of aortic stenosis. The mitral valve leaflets are mildly thickened. Mild mitral annular calcification present. Mild mitral regurgitation is present. Trace tricuspid regurgitation present. There is no evidence of pulmonary hypertension. The right ventricular systolic pressure, as measured by Doppler, is 25.84mmHg. The pulmonic valve was not well visualized. The aortic root size is normal. The inferior vena cava is dilated with no significant inspiratory collapse which is consistent estimated right atrial pressure of >20 mmHg. The pericardium is normal. There is no pericardial effusion. CONCLUSIONS -------- 1. Resting tachycardia (HR>100bpm). 2. Mild mitral regurgitation is present. 3. Trace tricuspid regurgitation present. 4. There is no evidence of pulmonary hypertension. 5. The right ventricular systolic pressure, as measured by Doppler, is 25.84mmHg. 6. The pulmonic valve was not well visualized. 7. The aortic root size is normal. 8. The inferior vena cava is dilated with no significant inspiratory collapse which is consistent estimated right atrial pressure of >20 mmHg. 9. There is no pericardial effusion. 10. There is moderate concentric left ventricular hypertrophy. 11. There is severe global hypokinesis of LV . 12. Overall left ventricular systolic function is severely impaired with, an EF between 20 - 25 %. 13. Mitral Doppler inflow pattern suggest diastolic filling abnormality 21.00. 14. Normal LA size by volume 22+/-6 ml/m2. 15. There is mild aortic valve sclerosis. 16. The mitral valve leaflets are mildly thickened. 17. Mild mitral annular calcification present. SUCTION WORKER: Elio Tracy RDCS
[2016-08-11] MEDS: ASPIRIN 81 MG CHEW PO SCH (10:31)
[2016-08-11] MEDS: LORazepam 2 MG/ML SYRINGE IV PRN (10:31)
[2016-08-11] MEDS: FUROSEMIDE 10 MG/ML 4 ML VIAL IV SCH (10:32)
--- NOTE | 2016-08-11 11:56 | P.PN ---
Subjective Principal diagnosis: Acute respiratory failure secondary to acute inferior wall myocardial infarction and COPD exacerbation. This is a very pleasant 75-year-old gentleman who has a past medical history of dementia, hyperlipidemia, osteoarthritis, previous recurrent pneumonias. He is maintained on Bactrim. He also has severe oxygen-dependent, steroid-dependent chronic obstructive pulmonary disease and follows with me our office for the same. He has a history of previous smoking. He was last seen about one month ago in the office with symptoms of cough and congestion and was treated with antibiotics and steroids and did improve for a couple of weeks. However 2 mornings ago he woke up not feeling well with difficulty breathing weakness and congestion. Yesterday he went to [facility] for continued symptoms. He was subsequently transferred here after being found to have borderline troponins and suspicion for acute coronary syndrome. He has no previous history of coronary artery disease, no myocardial infarction, no congestive heart failure. Troponin currently 0.157. He has been initiated on a heparin drip. He denies any chest pain, palpitations, lightheadedness or dizziness. He is quite dyspneic on minimal exertion and with extended conversation. He is maintaining O2 saturations in the 90s on 3 L/m per nasal cannula. Currently afebrile. No leukocytosis. His chest x-ray shows a patchy left upper lobe density possible early infiltrate/atelectasis as well as signs of COPD. CT of the chest in December 2015 revealed fairly moderate to advanced emphysema changes with scattered areas of fibrosis seen bilaterally. 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 I was notified about this patient, and I have made arrangements for the patient be transferred to the ICU. Knowing in fact that the patient is DO NOT RESUSCITATE CODE STATUS, but I felt the patient will get closer attention in the intensive care unit setting. I saw him in the ICU shortly after he was transferred, patient remains on BiPAP, IPAP of 12, EPAP of 5, FiO2 is 70%. Patient seems to be more comfortable with BiPAP. However he was noted to be a bit tachycardic, hypertensive, and I have recommended that we increase his beta reza to 50 mg twice a day, I also recommended that he gets immediate evaluation by cardiology. His cardiac enzymes are on the rise, and clearly based on the presentation the patient must have sustained an acute inferior wall myocardial infarction. Chest x-ray showed no evidence of pulmonary edema, chronic changes noted, no evidence of pneumonia. Had a long discussion with the patient and his at bedside, patient would like to remain DO NOT RESUSCITATE, and we'll try to manage conservatively short of heroic invasive measures. Labs were reviewed PTT is therapeutic. CBC is normal. Electrolytes are normal however BUN is 40 creatinine is 1.33. Liver enzymes are on the rise possibly secondary to hypoperfusion. Or shock liver. Troponin is up to 8.6 CPK is up to 75.5. Patient was reevaluated today on 08/11/2016. I actually came back last night and evaluated the patient, and he was extremely restless agitated and could not hold still in bed. Patient was confused, and clearly noted to have what seems to be a picture of ICU psychosis. Hence after Haldol failed to control the patient, and after Ativan also failed to control the patient appropriately, I recommended starting the patient on Precedex. That seemed to work much better than Haldol and Ativan. Patient apparently slept through the night until early this morning. He remains on Precedex, and this is as per protocol. Patient was on BiPAP earlier, I plan to switch him to a non-rebreather mask or possibly to a high flow nasal cannula. Discussed his condition with his family at bedside, apparently he had a similar clinical presentation back when he had his spinal surgery years ago. Patient remains a bit confused, and a bit restless when aroused. Labs were reviewed, WBC count is 11.2 hemoglobin is 11.6. PTT is therapeutic at 49.4. BUN is 59 and creatinine is 1.53, hence I will cut down on diuretics on this patient. And cautiously hydrate him. Chest x-ray showed borderline cardiomegaly, and worsening alveolar airspace disease in the left and right lower lobe. Differential diagnosis of course includes pneumonia and atelectasis. Not to mention the patient had previously chronic changes in the lower lobes. And he remains empirically on antibiotics anyway. Although my clinical suspicion for pneumonia is rather low. Objective - Vital Signs Vital signs: Vital Signs Temp 98.4 F 08/11/16 08:00 Pulse 75 08/11/16 11:43 Resp 19 08/11/16 11:00 BP 101/60 08/11/16 11:00 Pulse Ox 98 08/11/16 11:00 Intake & Output 08/10/16 08/11/16 08/11/16 18:59 06:59 18:59 Intake Total 745.954 839.161 151.008 Output Total 1790 572 270 Balance -1044.046 267.161 -118.992 Weight 91.1 kg Intake: IV 235.3 240 80 0.9 @10mls/hr 210 240 80 Heparin Sodium,Porcine/ 25.3 D5w Pmx 25,000 unit In Dextrose/Water 1 500ml. bag @ 10.9 UNITS/KG/HR 19 .94 mls/hr IV .Q24H [facility] Rx#:[id number] Intake, IV Titration 510.654 479.161 71.008 Amount Azithromycin 500 mg In 250 Sodium Chloride 0.9% 250 ml @ 125 mls/hr IVPB DAILY [facility] Rx#:[id number] Dexmedetomidine 400 mcg 38.796 71.008 In Sodium Chloride 0.9% 100 ml @ Titrate IV .Q0M [facility] Rx#:[id number] Heparin Sodium,Porcine/ 160.654 440.365 D5w Pmx 25,000 unit In Dextrose/Water 1 500ml. bag @ 10.9 UNITS/KG/HR 19 .94 mls/hr IV .Q24H [facility] Rx#:[id number] cefTRIAXone 1,000 mg In 100 Sodium Chloride 0.9% 50 ml @ 100 mls/hr IVPB Q24HR [facility] Rx#:[id number] Oral 120 Output: Urine 1790 572 270 Other: Voiding Method Indwelling Catheter Indwelling Catheter Indwelling Catheter - Exam GENERAL EXAM: Patient is in the ICU, restless and agitated, on BiPAP at present. HEAD: Normocephalic. EYES: Normal reaction of pupils, equal size. NOSE: Clear with pink turbinates. THROAT: No erythema or exudates. NECK: No masses, no JVD. CHEST: Crackles at the bases, rhonchi and wheezes noted bilaterally, diminished breath sounds noted CVS: S1 and S2 normal with no audible murmurs, regular rhythm. ABDOMEN: No hepatosplenomegaly, normal bowel sounds, no guarding or rigidity. Extremities: There is trace peripheral edema. No clubbing, no cyanosis. Peripheral pulses are intact. Neurologic: Patient is awake, confused, intermittently restless and agitated. And seems to thrash in bed. Cannot hold still, requiring 2 sitters to control the patient. Patient is also restrained intermittently. - Labs CBC & Chem 7: 08/11/16 04:33 08/11/16 04:33 Labs: Abnormal Lab Results - Last 24 Hours (Table) 08/10/16 08/10/16 08/10/16 Range/Units 11:38 13:07 17:19 WBC (3.8-10.6) k/uL RBC (4.30-5.90) m/uL Hgb (13.0-17.5) gm/dL Hct (39.0-53.0) % Plt Count (150-450) k/uL Neutrophils # (1.3-7.7) k/uL Lymphocytes # (1.0-4.8) k/uL APTT 45.8 H (22.0-30.0) sec BUN (9-20) mg/dL Creatinine (0.66-1.25) mg/dL Glucose (74-99) mg/dL POC Glucose (mg/dL) 171 H 129 H (75-99) mg/dL Calcium (8.4-10.2) mg/dL Phosphorus (2.5-4.5) mg/dL Magnesium (1.6-2.3) mg/dL 08/10/16 08/10/16 08/11/16 Range/Units 19:03 20:59 04:33 WBC 11.2 H (3.8-10.6) k/uL RBC 3.82 L (4.30-5.90) m/uL Hgb 11.6 L (13.0-17.5) gm/dL Hct 36.4 L (39.0-53.0) % Plt Count 124 L (150-450) k/uL Neutrophils # 10.1 H (1.3-7.7) k/uL Lymphocytes # 0.6 L (1.0-4.8) k/uL APTT 65.4 H (22.0-30.0) sec BUN (9-20) mg/dL Creatinine (0.66-1.25) mg/dL Glucose (74-99) mg/dL POC Glucose (mg/dL) 129 H (75-99) mg/dL Calcium (8.4-10.2) mg/dL Phosphorus (2.5-4.5) mg/dL Magnesium (1.6-2.3) mg/dL 08/11/16 08/11/16 08/11/16 Range/Units 04:33 04:33 07:51 WBC (3.8-10.6) k/uL RBC (4.30-5.90) m/uL Hgb (13.0-17.5) gm/dL Hct (39.0-53.0) % Plt Count (150-450) k/uL Neutrophils # (1.3-7.7) k/uL Lymphocytes # (1.0-4.8) k/uL APTT 49.4 H (22.0-30.0) sec BUN 59 H (9-20) mg/dL Creatinine 1.53 H (0.66-1.25) mg/dL Glucose 123 H (74-99) mg/dL POC Glucose (mg/dL) 130 H (75-99) mg/dL Calcium 7.9 L (8.4-10.2) mg/dL Phosphorus 6.1 H (2.5-4.5) mg/dL Magnesium 2.5 H (1.6-2.3) mg/dL Assessment and Plan Plan: Impression: 1 Acute inferior wall myocardial infarction with abnormal EKG on presentation and positive cardiac panel. Patient is presently on treatment as per protocol. 2 acute hypoxic respiratory failure secondary to Acute exacerbation of severe oxygen-dependent, steroid-dependent chronic obstructive pulmonary disease no evidence of pneumonia on chest x-ray. The findings are chronic findings on the chest x-ray. # 3 History of recurrent pneumonias, maintained on Bactrim in the outpatient setting. #4 History of dementia. #5 Hyperlipidemia. #6 Osteoarthritis with previous hip fracture secondary to a fall. #7 Remote history of chronic tobacco dependence. #8 Poor overall functional performance based on the above-mentioned multiple comorbidities. #9 abnormal liver enzymes, will likely need to be further investigated. Possibly this is a presentation of shock liver. #10 acute ICU psychosis, patient is presently on Precedex, failed to respond to Ativan and Haldol. Recommendation: Continue present supportive care measures, discussed his condition with him and with his family at bedside, all wish DO NOT RESUSCITATE CODE STATUS, we'll ask cardiology to evaluate, continue present treatment plan otherwise. I had a long discussion with the patient's family at bedside today, and again explained his overall clinical status to the family. Patient all along had previously expressed wishes as not to be on life support machine nares , and today they even requested no heroic measures whatsoever. But we'll continue to treat medically and hopefully optimize his overall medical status including his cardiac condition and his pulmonary condition as well as his neurological condition with medications without any significant intervention. Patient will remain in the ICU for now, he will be extremely difficult to be handled on the floor. Critical care time is 35 minutes. Time with Patient: Greater than 30
[2016-08-11 12:24] LABS: Glucose,Whole Blood 131 mg/dL (75-99)
--- NOTE | 2016-08-11 13:28 | PN ---
Mr. Monae was admitted with tracheobronchitis. He has chronic respiratory failure with acute exacerbation. ( ) on a BiPAP mask. He also has had an acute myocardial infarction but has not had any chest discomfort. Today his breathing looks a little better, even though he is on BiPAP mask. His heart rate is in the 80s. Pulse rate in the 80s. His blood pressure 101/60 mmHg. Breath sounds are reduced bilaterally with some rhonchi bilaterally. Heart sounds S1, S2 are soft. No murmurs, no gallop. Abdomen is soft, nontender. Extremities are warm. IMPRESSION: 1. Non-Q-wave myocardial infarction. 2. Tracheobronchitis with acute on chronic respiratory failure. 3. Abnormal LFTs in the thousands. 4. His 2-D echo report was reviewed and his left ventricular ejection fraction is severely impaired between 20% to 25%. SUGGEST: Medical treatment for coronary artery disease at this time. He has severe lung disease with acute exacerbation. He also has severe cardiomyopathy. His overall prognosis with interventional therapy will be poor. I reviewed his medications. I will stop his heparin today. I will continue beta blockers. If his blood pressure is low then amlodipine should be held. Continue atorvastatin 40 mg p.o. daily along with baby aspirin.
[2016-08-11] MEDS ORDERED: HALOPERIDOL LACTATE 5 MG/ML 1 ML VIAL IVP PRN (14:04)
[2016-08-11 17:29] LABS: Glucose,Whole Blood 149 mg/dL (75-99)
--- NOTE | 2016-08-11 17:52 | PN ---
Patient is a 75-year-old admitted for cwh-GW-uoxntsobh myocardial infarction. Patient also has acute respiratory failure. Both hypercapnic and hypoxic and hypercapnic respiratory failure secondary to COPD exacerbation. The patient has advanced COPD, advanced Gold Stage 4 COPD uses 4 liters of oxygen at home. There is probably a contribution from pulmonary edema as well. Patient has ejection fraction of 20 to 25%. Not sure whether this acute or chronic. Refer to cardiology for further details. Patient also has elevated liver enzymes probably due to hepatic congestion. Patient's BUN and creatinine has worsened. Patient also on IV Lasix. Started on 40 mg of IV Lasix. Patient has frequent PACs. Patient does appear to have dementia, appears to be moderate. There are occasional episodes of agitation for which we will use Haldol. Avoid narcotic medications including Ativan. Review of systems unable to obtain due to his clinical condition. Medications are reviewed. PHYSICAL EXAMINATION: VITAL SIGNS: Temperature 98.4, pulse of 77, respiratory rate of 19, blood pressure is 101/68, saturating at 92% on BiPAP at 10 liters. GENERAL: The patient is arousable, drowsy on BiPAP, unable to work. HEENT: Pupils are round and equally reacting to light. EOMI. No scleral icterus. No conjunctival pallor. Normocephalic, atraumatic. No pharyngeal erythema. No thyromegaly. CARDIOVASCULAR: S1 and S2 present. No murmurs, rubs, or gallops. PULMONARY: Lung examination diffuse rhonchus breath sounds and decreased air entry along with expiratory wheezing. ABDOMEN: Soft, nontender, nondistended, normoactive bowel sounds. No palpable organomegaly. MUSCULOSKELETAL: No joint swelling or deformity. EXTREMITIES: No cyanosis, clubbing, or pedal edema. NEUROLOGICAL: Does not appear to have any focal neurological deficits. SKIN: No rashes. LABORATORY DATA: CBC and BMP are abnormal for elevated BUN and creatinine of 59 and 1.53 which is worse compared to yesterday. Elevated WBC count 11,200 secondary to systemic steroids, elevated AST and ALT secondary to hepatic congestion as mentioned above. ASSESSMENT AND PLAN: 1. Hnf-LV-mohjskwsh myocardial infarction. 2. Acute hypoxic and hypercapnic respiratory failure due to chronic obstructive pulmonary disease exacerbation and community-acquired pneumonia along with chronic obstructive pulmonary disease with exacerbation. 3. Hypertension. 4. Acute renal failure secondary to prerenal azotemia. There may be a competent of chronic kidney disease stage 2 or 3. 5. Hypertension. 6. Hip fracture in the past. 7. Dyslipidemia. 8. Depression. 9. Possibility of dementia which appears to be moderate, nature of dementia is unknown. Plan as mentioned in the interval history. Delirious episodes and agitational episodes, we will use Seroquel at nighttime and Haldol and p.r.n. basis.
[2016-08-11] MEDS ORDERED: QUEtiapine 25 MG TAB PO SCH (21:00)
[2016-08-11] MEDS ORDERED: ATORVASTATIN 80 MG TAB PO SCH (21:00)
[2016-08-11] MEDS ORDERED: ATORVASTATIN 40 MG TAB PO SCH (21:00)
[2016-08-11 21:01] LABS: Glucose,Whole Blood 123 mg/dL (75-99)
[2016-08-11] MEDS ORDERED: DEXMEDETOMIDINE 400 MCG in SODIUM CHLORIDE 0.9% 100 ML IV SCH (21:24)
[2016-08-11] MEDS: amLODIPine 10 MG TAB PO SCH (21:48)
[2016-08-12 04:53] LABS: Basophils % (A) 0 %; CH 30.6; CHCM 32.5; Eosinophils # (A) 0.2 k/uL (0-0.7); Eosinophils % (A) 2 %; HCT 36.7 % (39.0-53.0); HDW 2.44; HGB 11.6 gm/dL (13.0-17.5); Luc # (Auto) 0.03; Luc % (Auto) 0; Lymphocytes # (A) 0.4 k/uL (1.0-4.8); Lymphocytes % (A) 3 %; MCHC 31.6 g/dL (31.0-37.0); MCV 94.9 fL (80.0-100.0); Mean Platelet Volume 8.1; Monocytes # (A) 0.2 k/uL (0-1.0); Monocytes % (A) 2 %; Neutrophils # (A) 9.7 k/uL (1.3-7.7); Neutrophils % (A) 93 %; RBC 3.87 m/uL (4.30-5.90); RDW 15.1 % (11.5-15.5); WBC 10.5 k/uL (3.8-10.6); WBC (Perox) 11.35
[2016-08-12 05:04] LABS: Alkaline Phosphatase 42 U/L (38-126); Anion Gap 8 mmol/L; Blood Urea Nitrogen 53 mg/dL (9-20); Calcium 8.2 mg/dL (8.4-10.2); Carbon Dioxide 29 mmol/L (22-30); Chloride 103 mmol/L (98-107); Glucose 125 mg/dL (74-99); Magnesium 2.6 mg/dL (1.6-2.3); Non-African American GFR(MDRD) >60 (>60 ml/min/1.73 sqM); Phosphorous 4.1 mg/dL (2.5-4.5); Potassium 3.6 mmol/L (3.5-5.1); Sodium 140 mmol/L (137-145); Total Protein 5.3 g/dL (6.3-8.2)
[2016-08-12 05:19] LABS: AST 1413 U/L (17-59)
[2016-08-12 05:32] LABS: ALT 3328 U/L (21-72)
[2016-08-12] MEDS: methylPREDNISolone SOD SUCCI 125 MG/2 ML VIAL IV SCH ×2 (06:12→13:03)
[2016-08-12 07:44] LABS: Glucose,Whole Blood 142 mg/dL (75-99)
--- NOTE | 2016-08-12 07:55 | XR ---
EXAMINATION TYPE: XR chest 1V DATE OF EXAM: 08/12/2016 6:28 AM COMPARISON: 08/11/2016 HISTORY: Shortness of breath TECHNIQUE: Single frontal view of the chest is obtained. FINDINGS: Postsurgical change overlying the cervical spine. Cardiomegaly and changes of COPD noted. Subsegmental linear changes at both lung bases. Arthropathy of the shoulders. IMPRESSION: 1. Findings suggest COPD with bilateral atelectasis or infiltrate stable in appearance.
[2016-08-12] MEDS: IPRATROPIUM-ALBUTEROL 3 ML NEB INHALATION SCH ×3 (07:56→15:23)
[2016-08-12] MEDS: BUDESONIDE 0.5 MG/2 ML NEBU INHALATION SCH (07:57)
[2016-08-12] MEDS: FUROSEMIDE 10 MG/ML 4 ML VIAL IV SCH (08:13)
[2016-08-12] MEDS: GABAPENTIN 300 MG CAP PO SCH (08:13)
[2016-08-12] MEDS: INSULIN LISPRO (humaLOG) 300 UNIT/3 ML VIAL SQ SCH ×2 (08:13→13:02)
[2016-08-12] MEDS: ASPIRIN 81 MG CHEW PO SCH (08:14)
[2016-08-12] MEDS: METOPROLOL TARTRATE 50 MG TAB PO SCH (08:14)
[2016-08-12] MEDS: FAMOTIDINE 20 MG TAB PO SCH (08:14)
[2016-08-12] MEDS: VENLAFAXINE HCL ER 150 MG CAP PO SCH (08:15)
[2016-08-12] MEDS ORDERED: LORazepam 2 MG/ML SYRINGE ONE (08:37)
[2016-08-12] MEDS ORDERED: LORazepam 2 MG/ML SYRINGE IV STA (08:43)
[2016-08-12 10:14] LABS: Hepatitis B Surface Ag Index 0.04
[2016-08-12 10:20] LABS: Hepatitis B Core IgM Index 0.01
[2016-08-12 10:31] LABS: Hepatitis C Virus IgG Ab Negative (Negative); Hepatitis C Virus IgG Index 0.03
[2016-08-12] MEDS: AZITHROMYCIN 500 MG in SODIUM CHLORIDE 0.9% 250 ML IVPB SCH (11:01)
--- NOTE | 2016-08-12 11:16 | US ---
EXAMINATION TYPE: US liver DATE OF EXAM: 08/12/2016 10:54 AM COMPARISON: NONE CLINICAL HISTORY: abormal lfts. Elevated liver enzymes EXAM MEASUREMENTS: Liver Length: 13.7 cm Gallbladder Wall: 0.6 cm CBD: 0.3 cm Right Kidney: 12.1 x 6.2 x 4.5 cm Pancreas: visualized portions appear heterogeneous, tail obscured by overlying bowel Liver: limitations, visualized portions appear wnl Gallbladder: thickened GB wall CBD: limited evaluation Right Kidney: cystic area laterally = 1.6 x 1.5 x 1.2cm *Extreme technical limitations. ICU patient, unable to hold still and uncooperative. Limitations due to body habitus and overlying bowel content IMPRESSION: 1. Exam limited. Pancreas is heterogeneous which can be seen with pancreatitis. Correlate with serum enzymes. 2. Thickening of the gallbladder wall. Nonspecific finding no gallstones or pericholecystic fluid. Ac alculous cholecystitis in the differential. 3. Visualized portions of the liver appear homogeneous. Correlate with CT scan as clinically warrante d.
[2016-08-12 11:29] VITALS: BMI 28.8
--- NOTE | 2016-08-12 11:34 | P.PN ---
Subjective Principal diagnosis: Acute respiratory failure secondary to acute inferior wall myocardial infarction and COPD exacerbation. This is a very pleasant 75-year-old gentleman who has a past medical history of dementia, hyperlipidemia, osteoarthritis, previous recurrent pneumonias. He is maintained on Bactrim. He also has severe oxygen-dependent, steroid-dependent chronic obstructive pulmonary disease and follows with me our office for the same. He has a history of previous smoking. He was last seen about one month ago in the office with symptoms of cough and congestion and was treated with antibiotics and steroids and did improve for a couple of weeks. However 2 mornings ago he woke up not feeling well with difficulty breathing weakness and congestion. Yesterday he went to [facility] for continued symptoms. He was subsequently transferred here after being found to have borderline troponins and suspicion for acute coronary syndrome. He has no previous history of coronary artery disease, no myocardial infarction, no congestive heart failure. Troponin currently 0.157. He has been initiated on a heparin drip. He denies any chest pain, palpitations, lightheadedness or dizziness. He is quite dyspneic on minimal exertion and with extended conversation. He is maintaining O2 saturations in the 90s on 3 L/m per nasal cannula. Currently afebrile. No leukocytosis. His chest x-ray shows a patchy left upper lobe density possible early infiltrate/atelectasis as well as signs of COPD. CT of the chest in December 2015 revealed fairly moderate to advanced emphysema changes with scattered areas of fibrosis seen bilaterally. Patient was reevaluated today on 08/10/2016, early childhood coordinator hours, the patient was having more shortness of breath, he was requiring more frequent treatments with DuoNeb, and he was placed on BiPAP. I was notified about this patient, and I have made arrangements for the patient be transferred to the ICU. Knowing in fact that the patient is DO NOT RESUSCITATE CODE STATUS, but I felt the patient will get closer attention in the intensive care unit setting. I saw him in the ICU shortly after he was transferred, patient remains on BiPAP, IPAP of 12, EPAP of 5, FiO2 is 70%. Patient seems to be more comfortable with BiPAP. However he was noted to be a bit tachycardic, hypertensive, and I have recommended that we increase his beta reza to 50 mg twice a day, I also recommended that he gets immediate evaluation by cardiology. His cardiac enzymes are on the rise, and clearly based on the presentation the patient must have sustained an acute inferior wall myocardial infarction. Chest x-ray showed no evidence of pulmonary edema, chronic changes noted, no evidence of pneumonia. Had a long discussion with the patient and his at bedside, patient would like to remain DO NOT RESUSCITATE, and we'll try to manage conservatively short of heroic invasive measures. Labs were reviewed PTT is therapeutic. CBC is normal. Electrolytes are normal however BUN is 40 creatinine is 1.33. Liver enzymes are on the rise possibly secondary to hypoperfusion. Or shock liver. Troponin is up to 8.6 CPK is up to 75.5. Patient was reevaluated today on 08/11/2016. I actually came back last night and evaluated the patient, and he was extremely restless agitated and could not hold still in bed. Patient was confused, and clearly noted to have what seems to be a picture of ICU psychosis. Hence after Haldol failed to control the patient, and after Ativan also failed to control the patient appropriately, I recommended starting the patient on Precedex. That seemed to work much better than Haldol and Ativan. Patient apparently slept through the night until early this morning. He remains on Precedex, and this is as per protocol. Patient was on BiPAP earlier, I plan to switch him to a non-rebreather mask or possibly to a high flow nasal cannula. Discussed his condition with his family at bedside, apparently he had a similar clinical presentation back when he had his spinal surgery years ago. Patient remains a bit confused, and a bit restless when aroused. Labs were reviewed, WBC count is 11.2 hemoglobin is 11.6. PTT is therapeutic at 49.4. BUN is 59 and creatinine is 1.53, hence I will cut down on diuretics on this patient. And cautiously hydrate him. Chest x-ray showed borderline cardiomegaly, and worsening alveolar airspace disease in the left and right lower lobe. Differential diagnosis of course includes pneumonia and atelectasis. Not to mention the patient had previously chronic changes in the lower lobes. And he remains empirically on antibiotics anyway. Although my clinical suspicion for pneumonia is rather low. Patient was reevaluated today on 08/12/2016, seems to be extremely agitated this morning, not responding to Precedex, not responding to Haldol, and for some reason Ativan was discontinued. As soon as I gave the patient 2 mg of Ativan, he mellowed down quite nicely, he was placed on BiPAP, and he was more relaxed, family was quite relieved that he seems to be sedated, and falling asleep. Hence I will discontinue Haldol, will likely discontinue Precedex later today, in the meantime I will keep him on Ativan only. Labs were reviewed normal CBC and normal electrolytes were noted. BUN was 53, creatinine 0.96. Liver enzymes continue to rise, hence I ordered an ultrasound of the liver and I recommended a hepatitis screen. Ultrasound of the liver showed thickened gallbladder wall, acalculous cholecystitis was felt to be in the differential. Also pancreatitis was also raised as a possibility based on the heterogeneous findings on the pancreas. Pancreatic enzymes were ordered. Echocardiogram was reviewed it showed severe LV dysfunction ejection fraction of 20-25%. Severe global hypokinesis was noted. Chest x-ray showed no evidence of congestive heart failure, but it did show some bibasilar atelectasis, strongly doubt infiltrates. Objective - Vital Signs Vital signs: Vital Signs Temp 98.4 F 08/12/16 08:00 Pulse 99 08/12/16 08:08 Resp 28 H 08/12/16 08:00 BP 128/62 08/12/16 08:00 Pulse Ox 99 08/12/16 08:00 Intake & Output 08/11/16 08/12/16 08/12/16 18:59 06:59 18:59 Intake Total 231.008 916.397 20 Output Total 600 730 90 Balance -368.992 186.397 -70 Intake: IV 160 120 20 0.9 @10mls/hr 160 120 20 Intake, IV Titration 71.008 76.397 Amount Dexmedetomidine 400 mcg 71.008 76.397 In Sodium Chloride 0.9% 100 ml @ Titrate IV .Q0M [facility] Rx#:[id number] Oral 720 Output: Urine 600 730 90 Other: Voiding Method Indwelling Catheter Indwelling Catheter Indwelling Catheter - Exam GENERAL EXAM: Patient is in the ICU, restless and agitated, on BiPAP at present. Responded to 2 mg of Ativan IV push earlier when I evaluated the patient. HEAD: Normocephalic. EYES: Normal reaction of pupils, equal size. NOSE: Clear with pink turbinates. THROAT: No erythema or exudates. NECK: No masses, no JVD. CHEST: Crackles at the bases, rhonchi and wheezes noted bilaterally, diminished breath sounds noted CVS: S1 and S2 normal with no audible murmurs, regular rhythm. ABDOMEN: No hepatosplenomegaly, normal bowel sounds, no guarding or rigidity. Extremities: There is trace peripheral edema. No clubbing, no cyanosis. Peripheral pulses are intact. Neurologic: Patient is awake, confused, intermittently restless and agitated. And seems to thrash in bed. Until he was given 2 mg of Ativan IV push. - Labs CBC & Chem 7: 08/12/16 04:38 08/12/16 04:38 Labs: Abnormal Lab Results - Last 24 Hours (Table) 08/11/16 08/11/16 08/11/16 Range/Units 12:22 17:27 20:59 RBC (4.30-5.90) m/uL Hgb (13.0-17.5) gm/dL Hct (39.0-53.0) % Plt Count (150-450) k/uL Neutrophils # (1.3-7.7) k/uL Lymphocytes # (1.0-4.8) k/uL BUN (9-20) mg/dL Glucose (74-99) mg/dL POC Glucose (mg/dL) 131 H 149 H 123 H (75-99) mg/dL Calcium (8.4-10.2) mg/dL Magnesium (1.6-2.3) mg/dL AST (17-59) U/L ALT (21-72) U/L Total Protein (6.3-8.2) g/dL Albumin (3.5-5.0) g/dL 08/12/16 08/12/16 08/12/16 Range/Units 04:38 04:38 07:43 RBC 3.87 L (4.30-5.90) m/uL Hgb 11.6 L (13.0-17.5) gm/dL Hct 36.7 L (39.0-53.0) % Plt Count 115 L (150-450) k/uL Neutrophils # 9.7 H (1.3-7.7) k/uL Lymphocytes # 0.4 L (1.0-4.8) k/uL BUN 53 H (9-20) mg/dL Glucose 125 H (74-99) mg/dL POC Glucose (mg/dL) 142 H (75-99) mg/dL Calcium 8.2 L (8.4-10.2) mg/dL Magnesium 2.6 H (1.6-2.3) mg/dL AST 1413 H (17-59) U/L ALT 3328 H (21-72) U/L Total Protein 5.3 L (6.3-8.2) g/dL Albumin 3.4 L (3.5-5.0) g/dL Assessment and Plan Plan: Impression: 1 Acute inferior wall myocardial infarction with abnormal EKG on presentation and positive cardiac panel. Patient is presently on treatment as per protocol. 2 acute hypoxic respiratory failure secondary to Acute exacerbation of severe oxygen-dependent, steroid-dependent chronic obstructive pulmonary disease no evidence of pneumonia on chest x-ray. The findings are chronic findings on the chest x-ray. # 3 History of recurrent pneumonias, maintained on Bactrim in the outpatient setting. #4 History of dementia. #5 Hyperlipidemia. #6 Osteoarthritis with previous hip fracture secondary to a fall. #7 Remote history of chronic tobacco dependence. #8 Poor overall functional performance based on the above-mentioned multiple comorbidities. #9 abnormal liver enzymes, will likely need to be further investigated. Possibly this is a presentation of shock liver. #10 acute ICU psychosis, patient is presently on Precedex, no improvement with Haldol, hence it was discontinued, and we will likely use Ativan only. #11 severe ischemic cardiomyopathy and LV dysfunction with ejection fraction of 25% at best. Recommendation: Continue present supportive care measures, keep patient on BiPAP , keep for now on Precedex and Ativan, will likely discontinue Precedex later today. Continue on bronchodilators, I have discontinued his statin because of his liver enzymes. Ultrasound of the liver was reviewed, patient is clearly not a surgical candidate for a calculus cholecystitis, pancreatic enzymes are pending, prognosis is definitely poor and guarded, patient remains DO NOT RESUSCITATE CODE STATUS. Had another discussion with family at bedside, and I have known this patient as well as his family for a long time, if we get to the point where we have to address comfort care measures, this should be addressed accordingly with the and children. Critical care time is 35 minutes. Patient will be kept in the ICU today. Time with Patient: Greater than 30
[2016-08-12 12:25] LABS: Glucose,Whole Blood 113 mg/dL (75-99)
[2016-08-12] MEDS: LORazepam 2 MG/ML SYRINGE IV PRN (13:06)
--- NOTE | 2016-08-12 14:30 | PN ---
Mr. Monae is using a BiPAP mask. He came in with acute myocardial infarction as well as acute respiratory failure. His respirations are 28 and shallow. His blood pressure is 107/54 mmHg. Breath sounds are reduced bilaterally and there are less rhonchi now. Heart sounds, S1, S2 are soft. Abdomen is soft, nontender. IMPRESSION: 1. Non-Q-wave myocardial infarction. 2. Acute on chronic respiratory failure from pneumonitis/bronchitis. SUGGEST: Continue cardiac medications, medical management for CAD and OK.
[2016-08-12] MEDS ORDERED: SCOPOLAMINE 1.5MG/72HR PATCH TRANSDERM PRN (15:45)
[2016-08-12] MEDS ORDERED: MORPHINE SULFATE 4 MG/ML SYRINGE IV PRN (15:45)
[2016-08-12] MEDS ORDERED: MORPHINE SULFATE (100 MG/2 ML) 100 MG in SODIUM CHLORIDE 0.9% 100 ML IV SCH (15:45)
[2016-08-12] MEDS ORDERED: ATROPINE OPHTH SOLN 1% 5ML BTL SUBLINGUAL PRN (15:45)
[2016-08-12] MEDS ORDERED: ONDANSETRON 4 MG/2 ML VIAL IVP PRN (15:45)
[2016-08-12 16:11] VITALS: BP 119/60; PULSE 68; RESP 14; TEMP 98.1
--- NOTE | 2016-08-12 20:49 | PN ---
Patient with advanced COPD does not have any significant improvement in his respiratory status. Patient was admitted for a djp-[id number]-[id number]-elevation myocardial infarction. Although patient had improvement in his hepatic congestion, ultrasound of the liver was obtained, I believe by Pulmonology, which did not show any significant abnormality. Since there is no significant improvement, family, considering his previous wishes, decided to make him COMFORT CARE. Patient will be made COMFORT CARE and transferred out of ICU. REVIEW OF SYSTEMS: Unable to obtain ( ) at this point of time. Medications were reviewed. All the medications were discontinued except for comfort medications. Patient will be transferred out of ICU. PHYSICAL EXAMINATION: VITAL SIGNS: Temperature 98.1, pulse of 68, respiratory rate of 14. Blood pressure is 119/60. Saturating at 96% on BiPAP. Patient is comfortable on BiPAP. Patient is not tachycardic. Patient is still excessively sleepy, arousable. GENERAL: The patient is alert and oriented x3, not in any acute distress. Well developed, well nourished. HEENT: Pupils are round and equally reacting to light. EOMI. No scleral icterus. No conjunctival pallor. Normocephalic, atraumatic. No pharyngeal erythema. No thyromegaly. CARDIOVASCULAR: S1 and S2 present. No murmurs, rubs, or gallops. PULMONARY: Chest is clear to auscultation, no wheezing or crackles. ABDOMEN: Soft, nontender, nondistended, normoactive bowel sounds. No palpable organomegaly. MUSCULOSKELETAL: No joint swelling or deformity. EXTREMITIES: No cyanosis, clubbing, or pedal edema. NEUROLOGICAL: Does not appear to have any focal neurological deficits. SKIN: No rashes. LABORATORY DATA: As mentioned above, improving liver enzymes. ASSESSMENT AND PLAN: Are. 1. Amk-CV-kngyzuybv myocardial infarction. 2. Acute hypoxic and hypercapnic respiratory failure secondary to chronic obstructive pulmonary disease exacerbation. 3. Hypertension. 4. Acute renal failure. 5. Hepatic congestion leading to elevated liver enzymes. 6. Hypertension. 7. Rib fracture in the past. 8. Dyslipidemia. 9. Depression. 10. Dementia. Considering his dementia and advanced COPD, patient is definitely appropriate for hospice, and patient is being made HOSPICE. Hospice is being consulted and patient will be transferred out of ICU. Patient most probably will remain as inpatient hospice, as patient is not expected to survive too long without respiratory support. Patient was initiated on Ativan, scopolamine patch and morphine as needed for comfort and respiratory distress along with as-needed oxygen.
[2016-08-12] MEDS ORDERED: FAMOTIDINE 20 MG TAB PO SCH (21:00)
[2016-08-13] MEDS: LORazepam 2 MG/ML SYRINGE IV PRN (02:50)
--- NOTE | 2016-08-14 17:47 | DS ---
DATE OF ADMISSION: 08/09/2016 DATE OF DISCHARGE: 08/13/2016 Patient was admitted to the hospital with chronic obstructive pulmonary disease exacerbation. Patient had no significant improvement and patient was subsequently made hospice. The patient earlier today morning. Primary cause of : Possibly myocardial infarction with contribution from advanced chronic obstructive pulmonary disease. Please refer to my progress note from yesterday for further details of hospitalization, hospitalization course and treatment. The patient was made hospice last night. The patient today morning. Please refer to nursing documentation for further details of time and date of .
== END 2016-08-13 03:52 | disposition expired ==
LOC: 6SEL 09:46 → 6ICU 08-10 05:44 → 5ONC 08-12 18:25
PROVIDERS: ADMIT Internal Medicine; ATTEND Internal Medicine
DX: I21.4 Non-ST elevation (NSTEMI) myocardial infarction (principal); J96.21 Acute and chronic respiratory failure with hypoxia; K72.00 Acute and subacute hepatic failure without coma; J96.22 Acute and chronic respiratory failure with hypercapnia; N17.9 Acute kidney failure, unspecified; J44.0 Chronic obstructive pulmonary disease with (acute) lower respiratory infection; J44.1 Chronic obstructive pulmonary disease with (acute) exacerbation; J98.11 Atelectasis; F03.90 Unspecified dementia, unspecified severity, without behavioral disturbance, psychotic disturbance, mood disturbance, and anxiety; Z99.81 Dependence on supplemental oxygen; Z66 Do not resuscitate; Z51.5 Encounter for palliative care; I25.10 Atherosclerotic heart disease of native coronary artery without angina pectoris; I25.5 Ischemic cardiomyopathy; I10 Essential (primary) hypertension; F41.9 Anxiety disorder, unspecified; E55.9 Vitamin D deficiency, unspecified; E78.5 Hyperlipidemia, unspecified; M19.91 Primary osteoarthritis, unspecified site; F28 Other psychotic disorder not due to a substance or known physiological condition; G89.29 Other chronic pain; M54.5 Low back pain; D64.9 Anemia, unspecified; J40 Bronchitis, not specified as acute or chronic; F32.9 Major depressive disorder, single episode, unspecified; Z87.891 Personal history of nicotine dependence; Z87.81 Personal history of (healed) traumatic fracture; Z86.73 Personal history of transient ischemic attack (TIA), and cerebral infarction without residual deficits; Z87.01 Personal history of pneumonia (recurrent); Z98.42 Cataract extraction status, left eye; Z98.41 Cataract extraction status, right eye; Z88.5 Allergy status to narcotic agent; Z88.8 Allergy status to other drugs, medicaments and biological substances; Z79.51 Long term (current) use of inhaled steroids; Z79.52 Long term (current) use of systemic steroids; Z79.82 Long term (current) use of aspirin; Z79.899 Other long term (current) drug therapy
CPT/HCPCS: 71010; 76705; 80048; 80053; 80074; 81001; 82553; 83735; 84100; 84132; 84484; 85025; 85610; 85730; 93306; 94640; 94660